=== PATIENT | female | born 1945 | race Caucasian/White ===

== ENCOUNTER 2018-01-04 16:55 | Emergency (ER) | payer MEDICAID, OTHER ==
[~2018-01-04] VITALS: Ht 144.8 cm; Wt 54.0 kg
[2018-01-04 16:57] VITALS: BP 135/71; PULSE 86; RESP 16; TEMP 97.8; O2SAT 95
[2018-01-04] MEDS ORDERED: CLON0.5T PO (17:12)
[2018-01-04] MEDS ORDERED: OMEP10SU (17:12)
[2018-01-04] MEDS ORDERED: CYAN1TAB24 (17:12)
[2018-01-04] MEDS ORDERED: HYDR-3583 PO (17:12)
[2018-01-04] MEDS ORDERED: METO25TA3 PO (17:12)
[2018-01-04] MEDS ORDERED: CITA40TA4 PO (17:12)
[2018-01-04] MEDS ORDERED: BUPR150CR PO (17:12)
[2018-01-04] MEDS ORDERED: CALCTAB94 PO (17:12)
[2018-01-04] MEDS ORDERED: DULO1CAP2 PO (17:12)
--- NOTE | 2018-01-04 17:26 | PD ---
HPI Chief Complaint: Abnormal Results Time Seen by Provider: 17:11 Travel History International Travel<30 days: No Contact w/Intl Traveler<30days: No Traveled to known affect area: No History of Present Illness HPI The patient was seen and examined in the presence of the nurse. This patient is visiting from [place]. Her physician did a blood draw 10 days ago that showed a potassium of 6. He prescribed her 4 doses of Kayexalate but she only used 1 dose. She came to the ER today to have her potassium evaluated. She is worried that it is elevated. She feels fine. Her symptom severity is mild. She denies history of renal disease. She takes no potassium supplements. No alleviating factors. Situation is exacerbated by her noncompliance with treatment. PFSH Past Medical History Blood Disorders: No Depression: Yes Cardiovascular Problems: Yes (htn on meds) Diminished Hearing: No GERD: Yes Hypertension: Yes Tetanus Vaccination: Unknown Influenza Vaccination: No ?: Not Past Surgical History Hysterectomy: Yes Neurologic Surgery: Yes (Rods in back) Social History Alcohol Use: No Tobacco Use: No (former) Substance Use: No Allergies-Medications (Allergen,Severity, Reaction): Coded Allergies: meperidine (Unverified Allergy, Severe, 01/04/18) Sulfa (Sulfonamide Antibiotics) (Verified Allergy, Intermediate, rash, ) Reported Meds & Prescriptions Reported Meds & Active Scripts Active Reported B12 (Cyanocobalamin) 1,000 Mcg Tab Calcium 600 (Calcium Carbonate) 600 Mg Calcium (1500 Mg) Tab 1,500 Mg PO Prilosec (Omeprazole Magnesium) 10 Mg Pow Clonazepam 0.5 Mg Tab 0.5 Mg PO BID Hydrocodone-Acetaminophen 10-325 mg Tab 1 Tab PO Q6H PRN Duloxetine DR (Duloxetine HCl) 30 Mg Capdr 30 Mg PO BID Metoprolol Tartrate 25 Mg Tab 25 Mg PO BID Citalopram (Citalopram Hydrobromide) 40 Mg Tab 40 Mg PO DAILY Wellbutrin SR 12 HR (Bupropion HCl) 150 Mg Tab 150 Mg PO Q12HR Review of Systems General / Constitutional: No: Fever Eyes: No: Visual changes HENT: No: Headaches Cardiovascular: No: Chest Pain or Discomfort Respiratory: No: Shortness of Breath Gastrointestinal: No: Abdominal Pain Genitourinary: No: Dysuria Musculoskeletal: No: Pain Skin: No Rash Neurologic: No: Weakness Psychiatric: No: Depression Endocrine: No: Polydipsia Hematologic/Lymphatic: No: Easy Bruising Physical Exam Narrative GENERAL: Well-nourished, well-developed patient in no apparent distress. SKIN: Focused skin assessment reveals no rash and nodules. Skin is Warm and dry. HEAD: Atraumatic. Normocephalic. EYES: Pupils equal and round. No scleral icterus. No injection or drainage. ENT: No nasal bleeding or discharge. Mucous membranes pink and moist. NECK: Trachea midline. No JVD. CARDIOVASCULAR: Regular rate and rhythm. No murmur appreciated. RESPIRATORY: No accessory muscle use. Clear to auscultation. Breath sounds equal bilaterally. GASTROINTESTINAL: Abdomen soft, non-tender, nondistended. Hepatic and splenic margins not palpable. MUSCULOSKELETAL: No obvious deformities. No clubbing. No cyanosis. No edema. NEUROLOGICAL: Awake and alert. No obvious cranial nerve deficits. Motor grossly within normal limits. Normal speech. PSYCHIATRIC: Appropriate mood and affect; insight and judgment normal. Data Data Last Documented VS Vital Signs Date Time Temp Pulse Resp B/P (MAP) Pulse Ox O2 Delivery O2 Flow Rate FiO2 01/04/18 16:57 97.8 86 16 135/71 (92) 95 Orders Orders Iv Access Insert/Monitor (01/04/18 17:15) Complete Blood Count With Diff (01/04/18 17:15) Basic Metabolic Panel (Bmp) (01/04/18 17:15) Ed Discharge Order (01/04/18 18:16) Labs Laboratory Tests Test 01/04/18 17:27 White Blood Count 9.5 TH/MM3 Red Blood Count 4.08 MIL/MM3 Hemoglobin 12.3 GM/DL Hematocrit 37.4 % Mean Corpuscular Volume 91.7 FL Mean Corpuscular Hemoglobin 30.1 PG Mean Corpuscular Hemoglobin Concent 32.9 % Red Cell Distribution Width 12.9 % Platelet Count 500 TH/MM3 Mean Platelet Volume 6.8 FL Neutrophils (%) (Auto) 75.6 % Lymphocytes (%) (Auto) 14.8 % Monocytes (%) (Auto) 6.2 % Eosinophils (%) (Auto) 1.6 % Basophils (%) (Auto) 1.8 % Neutrophils # (Auto) 7.1 TH/MM3 Lymphocytes # (Auto) 1.4 TH/MM3 Monocytes # (Auto) 0.6 TH/MM3 Eosinophils # (Auto) 0.2 TH/MM3 Basophils # (Auto) 0.2 TH/MM3 CBC Comment DIFF FINAL Differential Comment Blood Urea Nitrogen 18 MG/DL Creatinine 1.10 MG/DL Random Glucose 130 MG/DL Calcium Level 8.9 MG/DL Sodium Level 137 MEQ/L Potassium Level 3.4 MEQ/L Chloride Level 105 MEQ/L Carbon Dioxide Level 26.4 MEQ/L Anion Gap 6 MEQ/L Estimat Glomerular Filtration Rate 49 ML/MIN MDM Medical Decision Making Medical Screen Exam Complete: Yes Emergency Medical Condition: Yes Medical Record Reviewed: Yes Differential Diagnosis Hyperkalemia, cardiac arrhythmia, electrolyte abnormality Narrative Course I have reviewed the patient's electronic medical record. Extended cardiac monitoring reveals sinus rhythm with no peaked T waves or ectopy IV placed and labs sent Metabolic studies are reviewed. Her potassium is 3.4 with normal creatinine Patient feels fine and is stable for outpatient follow-up CBC shows minor thrombocytopenia Diagnosis Primary Impression: Hx of hyperkalemia Additional Instructions: The patient was advised to follow up with their physician and return if they worsen. Med/Other Pt SpecificInfo: Other Disposition: 01 DISCHARGE HOME Condition: Stable Ascencion Min MD Jan 04, 2018 17:26
[2018-01-04 17:33] LABS: AUTOMATED NEUTROPHIL # 7.1 TH/MM3 (1.8-7.7); BASOPHIL # 0.2 TH/MM3 (0-0.2); BASOPHIL % 1.8 % (0.0-2.0); EOSINOPHIL # 0.2 TH/MM3 (0-0.4); EOSINOPHIL % 1.6 % (0.0-4.0); HEMATOCRIT 37.4 % (35.0-46.0); HEMOGLOBIN 12.3 GM/DL (11.6-15.3); LYMPH % 14.8 % (9.0-44.0); LYMPHOCYTE # 1.4 TH/MM3 (1.0-4.8); MEAN CELL VOLUME 91.7 FL (80.0-100.0); MEAN CORPUSCULAR HEMOGLOBIN 30.1 PG (27.0-34.0); MEAN CORPUSCULAR HGB CONC 32.9 % (32.0-36.0); MEAN PLATELET VOLUME 6.8 FL (7.0-11.0); MONO % 6.2 % (0.0-8.0); MONOCYTE # 0.6 TH/MM3 (0-0.9); NEUT % 75.6 % (16.0-70.0); PLATELET COUNT 500 TH/MM3 (150-450); RED BLOOD COUNT 4.08 MIL/MM3 (4.00-5.30); RED CELL DISTRIBUTION WIDTH 12.9 % (11.6-17.2); WHITE BLOOD COUNT 9.5 TH/MM3 (4.0-11.0)
[2018-01-04 17:52] LABS: CALCIUM 8.9 MG/DL (8.5-10.1)
[2018-01-04 17:53] LABS: BICARBONATE 26.4 MEQ/L (21.0-32.0)
[2018-01-04 17:56] LABS: CREATININE 1.1 MG/DL (0.50-1.00)
== END 2018-01-04 18:25 | disposition home or self-care (01) ==
LOC: PHED 16:55
DX: D69.6 Thrombocytopenia, unspecified (principal); I10 Essential (primary) hypertension; K21.9 Gastro-esophageal reflux disease without esophagitis; F32.9 Major depressive disorder, single episode, unspecified; Z91.19 Patient's noncompliance with other medical treatment and regimen
CPT/HCPCS: 80048; 85025; 99283